=== PATIENT | male | born 1960 | race Caucasian/White ===

== ENCOUNTER → 2017-11-03 | Outpatient (CLI) | payer MEDICAID ==
[~2017-11-03] MED LIST: ATROPINE SYRINGE 0.1 MG/ML, 10ML ONE; DOBUTAMINE/D5W PMX 250 ML IV ONE; DOBUTAMINE/D5W PMX 250 ML ONE; ESMOLOL 100 MG/10 ML ONE; NITROGLYCERIN 0.4 MG BOTTLE (25 TABS) SL ONE; PLEASE ENTER ALLERGIES MC SCH; PLEASE ENTER HEIGHT AND WEIGHT MC SCH; SODIUM CHLORIDE 0.9% 500 ML IVF SCH
== END | disposition home or self-care (01) ==
LOC: CVU 08:48
PROVIDERS: ATTEND Internal Medicine Infectious Disease
DX: C22.0 Liver cell carcinoma (principal); B18.2 Chronic viral hepatitis C; K74.60 Unspecified cirrhosis of liver; E11.9 Type 2 diabetes mellitus without complications
CPT/HCPCS: 36600; 82803; 93017; 93306; 93350; J0461

== ENCOUNTER → 2017-12-02 | Outpatient (CLI) | payer MEDICAID ==
[~2017-12-02] MED LIST changes: -ATROPINE SYRINGE 0.1 MG/ML, 10ML ONE; -DOBUTAMINE/D5W PMX 250 ML IV ONE; -DOBUTAMINE/D5W PMX 250 ML ONE; -ESMOLOL 100 MG/10 ML ONE; -NITROGLYCERIN 0.4 MG BOTTLE (25 TABS) SL ONE; +OMNIPAQUE 350 MG/ML, 100ML BOTTLE ONE; -PLEASE ENTER ALLERGIES MC SCH; -PLEASE ENTER HEIGHT AND WEIGHT MC SCH; -SODIUM CHLORIDE 0.9% 500 ML IVF SCH
[2017-12-02 11:47] LABS: CREATININE 1.23 mg/dL (0.7-1.3)
== END | disposition home or self-care (01) ==
LOC: RAD 10:30
PROVIDERS: ATTEND Internal Medicine Infectious Disease
DX: K74.60 Unspecified cirrhosis of liver (principal); J84.10 Pulmonary fibrosis, unspecified; R59.1 Generalized enlarged lymph nodes
CPT/HCPCS: 36415; 71260; 74178; 82565; Q9967